=== PATIENT | female | born 1970 | race Two or more races ===

== ENCOUNTER 2020-06-09 05:42 | Emergency (ER) | payer OTHER ==
[2020-06-09] MEDS ORDERED: Sodium Chloride 0.9% 2.5 ML Syringe FLUSH PRN (05:56)
[2020-06-09] MEDS ORDERED: Sodium Chloride 0.9% 10 ML Syringe FLUSH PRN (05:56)
[2020-06-09] MEDS ORDERED: Meclizine 25 MG Tab PO ONE (06:08)
--- NOTE | 2020-06-09 06:13 | EDM.PDOC ---
<Warren Burgess - Last Filed: 06/09/20 06:36> ED HPI GENERAL MEDICAL PROBLEM - General Chief Complaint: General Stated Complaint: DIZZY, HIGH BLOOD PRESSURE, HEART PATIENT Time Seen by Provider: 06/09/20 05:43 - History of Present Illness INITIAL COMMENTS - FREE TEXT/NARRATIVE: 50-year-old female with a significant history including quadruple bypass with subsequent stent placement as well as TIA currently on Xarelto as well as aspirin who is presenting with dizziness headache and hypertension. The patient work-up to go the bathroom's morning and when she laid back down in bed she had severe room spinning associated with nausea. She checked her blood pressure and noted that it was very high she took her clonidine and then took the rest of her morning medicines the clonidine she took between 430 and 5 and the rest of her morning medicine she took between 5 and 530. Patient has no chest pain or shortness of breath and no palpitations but has had significant sensation of room spinning it worsens when she looks around the room and when she moves. She reports posterior neck discomfort but denies any recent neck injury or neck manipulation. - Related Data Allergies Allergy/AdvReac Type Severity Reaction Status Date / Time apixaban [From Eliquis] Allergy Dizziness Verified 06/09/20 05:54 sulfamethoxazole Allergy Hives Verified 06/09/20 05:54 [From Septra] topiramate [From Topamax] Allergy Other Verified 06/09/20 05:54 trimethoprim [From Septra] Allergy Hives Verified 06/09/20 05:54 Home Meds: Home Meds Amiodarone [Cordarone] 200 mg PO DAILY 06/09/20 [History] Aspirin 81 mg PO DAILY 06/09/20 [History] Calcium Citrate/Vitamin D3 [Calcium Citrate - Vit D Caplet] 1 each PO DAILY 06/09/20 [History] Clopidogrel Bisulfate [Clopidogrel] 75 mg PO DAILY 06/09/20 [History] Docusate Sodium [Colace] 100 mg PO DAILY 06/09/20 [History] Erenumab-Aooe [Aimovig Autoinjector] 140 mg SQ ASDIRECTED 06/09/20 [History] Fluticasone/Salmeterol [Advair 250-50] 1 puff INH BID 06/09/20 [History] Icosapent Ethyl [Vascepa] 2 gm PO BID 06/09/20 [History] Irbesartan 300 mg PO DAILY 06/09/20 [History] Meclizine HCl [Wal-Dram 2] 25 mg PO TID PRN #21 tablet 06/09/20 [Rx] Metoprolol Tartrate 25 mg PO BID 06/09/20 [History] Nitroglycerin [Nitrostat] 0.4 mg SL ASDIRECTED PRN 06/09/20 [History] Omeprazole 20 mg PO DAILY 06/09/20 [History] Rivaroxaban [Xarelto] 20 mg PO DAILY 06/09/20 [History] Rosuvastatin Calcium [Crestor] 40 mg PO DAILY 06/09/20 [History] hydroCHLOROthiazide [Hydrochlorothiazide] 12.5 mg PO DAILY 06/09/20 [History] traMADol [Ultram] 50 mg PO DAILY PRN 06/09/20 [History] Past Medical History Cardiovascular History: Reports: Bypass, High Cholesterol, Hypertension, Stents 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: Neurological History: Reports: Headaches, Chronic, TIA, Other (See Below) 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 Psychiatric History: Reports: Anxiety Hematologic History: Reports: Anticoagulation Therapy - Infectious Disease History Infectious Disease History: Reports: Chicken Pox - Past Surgical History Cardiovascular Surgical History: Reports: Other (See Below) Other Cardiovascular Surgeries/Procedures: quad bypass 2019 w stents x 2 Female Surgical History: Reports: Section Neurological Surgical History: Reports: Other (See Below) Other Neurological Surgeries/Procedures: left side brain biopsy 2019 Social & Family History - Family History Family Medical History: No Pertinent Family History - Tobacco Use Tobacco Use Status *Q: Never Tobacco User Second Hand Smoke Exposure: No - Recreational Drug Use Recreational Drug Use: No ED ROS GENERAL - Review of Systems Review Of Systems: See Below Free Text/Narrative/Comment: General: No fever. Skin: No rash. Eyes: No vision problems. ENT: No sore throat. Neck: No neck stiffness. Respiratory: No shortness of breath. Cardiac: No chest pain. Gastrointestinal: No nausea, vomiting or abdominal pain. Urinary: No dysuria. Musculoskeletal: No myalgias/arthralgias. Neurologic: Per HPI ED EXAM, GENERAL - Physical Exam Exam: See Below Free Text/Narrative:: General Appearance: No acute distress, appears comfortable Skin: No rash HEENT: Normocephalic/atraumatic, sclera anicteric, mucous membranes moist Neck: Normal range of motion Chest and Lungs: Bilateral breath sounds, clear to auscultation Cardiovascular: Regular rate and rhythm, no murmur Abdomen: Soft, non-tender Back: Normal Musculoskeletal: No edema or tenderness Neurologic: Leftward beating nystagmus that worsens with leftward gaze, abnormal head impulse test with catch-up saccade, normal test of skew, normal [id number] bilaterally intact strength and sensation bilateral upper and lower extremities Psychiatric: Appropriate, cooperative #1 Interpretation EKG Date: 06/09/20 Time: 05:52 EKG Interpretation Comments: Sinus bradycardia with a rate of 54 QT interval borderline at 490 diffuse T wave flattening no clear acute ischemia Departure - Departure Disposition: Home, Self-Care 01 Clinical Impression: Benign paroxysmal vertigo, right ear, Bradycardia - Discharge Information Prescriptions: Meclizine HCl [Wal-Dram 2] 25 mg PO TID PRN #21 tablet PRN Reason: Dizziness Instructions: Vertigo, Vfep-to-Egos, Bradycardia, Adult, How to Perform the Mino Maneuver Referrals: PCP,Not In Area [Primary Care Provider] - Forms: ED Department Discharge Additional Instructions: You were evaluated today on an emergent basis. I do believe your dizziness and spinning sensation are being caused by a by benign vertigo. Included in your instructions today is the Mino maneuver and I need you to do this approximately 3 times per day and use meclizine as needed for dizziness 3 times per day until symptoms improve. In addition today we found that your heart rate was lower than your normal and in discussion with your market director team it is thought to be secondary to the usage of clonidine and metoprolol. They recommend skipping your evening dose of metoprolol and then resuming tomorrow. They also recommend discontinuing clonidine. If you have any new or worsening symptoms such as chest pain, shortness of breath, passing out, or worsening dizziness please return to the emergency department. Please follow-up with your market director when you return to [place]. They are open 7 days a week and available at any time. The patient is informed of any results of their evaluation and diagnostic workup and all questions are answered. They are given discharge instructions and return precautions. The patient is stable for discharge. The patient states they understand and agree with the plan and that they will return if their symptoms get worse or if they have any new concerns. The following information is given to patients seen in the emergency department who are being discharged to home. This information is to outline your options for follow-up care. We provide all patients seen in our emergency department with a follow-up referral. The need for follow-up, as well as the timing and circumstances, are variable depending upon the specifics of your emergency department visit. If you don't have a primary care physician on staff, we will provide you with a referral. We always advise you to contact your personal physician following an emergency department visit to inform them of the circumstance of the visit and for follow-up with them and/or the need for any referrals to a consulting specialist. The emergency department will also refer you to a specialist when appropriate. This referral assures that you have the opportunity for follow-up care with a specialist. All of these measure are taken in an effort to provide you with optimal care, which includes your follow-up. Under all circumstances we always encourage you to contact your private physician who remains a resource for coordinating your care. When calling for follow-up care, please make the office aware that this follow-up is from your recent emergency room visit. If for any reason you are refused follow-up, please contact the [facility] Emergency Department at and asked to speak to the emergency department charge nurse. Sepsis Event Note (ED) - Evaluation Sepsis Screening Result: No Definite Risk - Assessment/Plan Assessment:: 50-year-old female with significant history as noted above presenting with vertigo that based on her HINTS exam is most consistent with peripheral source. That said given her high blood pressure and her posterior neck pain CT CTA of the head and neck ordered to exclude vertebral artery dissection. Meclizine will be given for symptoms. Patient's EKG is without clear acute ischemia CBC CMP pending as well. Initial troponin pending as well. Patient has no chest pain or shortness of breath. When hopeful that the meclizine will improve her symptoms. We are already seeing her blood pressure trend down likely related to the clonidine and other morning medications that she took. If symptoms vital signs continued to improve and evaluation is reassuring given her hints exam that is consistent with peripheral cause patient will likely be safe for discharge. Labs are thus far unremarkable. Pt signed out to Dr. Mon pending imaging results, reassessment and final disposition. <ElieserBryon - Last Filed: 06/09/20 13:27> ED HPI GENERAL MEDICAL PROBLEM - History of Present Illness INITIAL COMMENTS - FREE TEXT/NARRATIVE: Patient was signed out to me by Dr. Burgess pending imaging and reevaluation at 7 AM I did reevaluate the patient and at the time of my reevaluation the patient stated that her dizziness was still there specially when she turns to the right. She states that it has improved. She denied any nausea, headache, or neck pain at this time. At this time the CTs were still pending. On youth nutritional monitor the patient's heart rate was noted to be 45 and after review of the chart she did come in bradycardic at 54 therefore I did obtain a repeat EKG and reviewed the prior. These appear to be unchanged however she did have sinus bradycardia. After further discussion with the patient she stated that this morning when she got up she did feel dizzy and she took her blood pressure which is found to be 168/110 with a heart rate around 60. She states that she took her blood pressure medications which include metoprolol, hydrochlorothiazide, E irbesartan, amiodarone, and took a dose of 0.1 mg of p.o. clonidine for which her market director told her to take if her blood pressure is elevated. She denies taking any excessive doses. Labs reviewed revealed a normal CBC with differential, normal CMP with a mildly elevated AST at 42. Troponin x2 is negative. Twelve-lead EKG interpreted by myself. Sinus bradycardia at a rate of 47beats per minute. Borderline right axis. TX interval is 185 ms. QRS duration is [address] segments are normal without elevations or depressions. No Q waves present. Hypertrophy not noted. There are T wave inversions in leads V2 and V3. QTC is mildly prolonged at 491 no changes demonstrated from prior EKG dated today. Interpretation: Sinus bradycardia with nonspecific T wave inversions and borderline prolonged QT The radiological images were viewed by myself along with reading the report from the radiologist. CT head without contrast does not reveal any acute intracranial abnormality. 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 Moderate to severe right vertebral origin stenosis. After imaging I did have a discussion with the patient. She stated that she does know about the stenosis and the market director and neurologist that she works with stated that she need to keep her blood pressure between 140 and 150 systolic over 90. She states that other than today her blood pressure has been around that. At this time her dizziness had completely resolved. Given the bradycardia I do believe this is likely secondary to taking metoprolol and clonidine. She does not take clonidine every day so I think this is compounded. However I discussed with her that I would like to contact her market director to evaluate if any further intervention or work-up is needed. I contacted Dr. Reyna in [facility] and he believes that the bradycardia is due to metoprolol and clonidine. He recommended that the patient hold her metoprolol dose tonight and stop the clonidine completely. The patient is here on visit from [place] and the cardiology stated that they are open 7 days a week and she could follow-up as soon as she is back in [place]. I discussed the patient's symptoms her bradycardia and my discussion with her market director and at this time given the patient is asymptomatic currently I do believe the patient is stable for discharge. I discussed with her the rec ommendations from her market director and she expressed understanding and will make an appointment as soon as she is back in [place] in approximately 3 to 4 days. She is to return to the emergency department for any new or worsening symptoms. In addition I did discuss with her the Mino maneuver for her benign vertigo and provided her with a prescription for meclizine to be used as needed for dizziness. She was amenable discharge and had no further questions DISPOSITION: The patient was discharged home in stable condition. The patient will follow up with cardiology this next week CONDITION: Fair PROCEDURES: None FINAL IMPRESSION(S)/DIAGNOSES: 1. Acute benign positional vertigo 2. Acute bradycardia likely secondary to medication side effect Bryon Mon M.D.a Course - Vital Signs Last Recorded V/S: Last Vital Signs Temp 36.2 C 06/09/20 11:14 Pulse 46 L 06/09/20 11:14 Resp 15 06/09/20 11:14 BP 139/63 06/09/20 11:14 Pulse Ox 97 06/09/20 10:43 - Orders/Labs/Meds Orders: Active Orders 24 hr Category Date Time Status Saline Lock Insert [OM.PC] Stat Oth 06/09/20 05:56 Ordered Labs: Laboratory Tests 06/09/20 06/09/20 06/09/20 Range/Units 05:58 05:58 09:50 WBC 6.69 (4.0-11.0) K/uL RBC 4.94 (4.30-5.90) M/uL Hgb 12.4 (12.0-16.0) g/dL Hct 40.0 (36.0-46.0) % MCV 81.0 (80.0-98.0) fL MCH 25.1 L (27.0-32.0) pg MCHC 31.0 (31.0-37.0) g/dL RDW Std Deviation 44.3 (28.0-62.0) fl RDW Coeff of Caterina 15 (11.0-15.0) % Plt Count 275 (150-400) K/uL MPV 10.90 (7.40-12.00) fL Neut % (Auto) 46.5 L (48.0-80.0) % Lymph % (Auto) 43.6 H (16.0-40.0) % [place] % (Auto) 8.1 (0.0-15.0) % Eos % (Auto) 1.5 (0.0-7.0) % Baso % (Auto) 0.3 (0.0-1.5) % Neut # (Auto) 3.1 (1.4-5.7) K/uL Lymph # (Auto) 2.9 H (0.6-2.4) K/uL [place] # (Auto) 0.5 (0.0-0.8) K/uL Eos # (Auto) 0.1 (0.0-0.7) K/uL Baso # (Auto) 0.0 (0.0-0.1) K/uL Nucleated RBC % 0.0 /100WBC Nucleated RBCs # 0 K/uL Sodium 139 (136-145) mmol/L Potassium 3.9 (3.5-5.1) mmol/L Chloride 103 (98-107) mmol/L Carbon Dioxide 27.3 (21.0-32.0) mmol/L BUN 15 (7.0-18.0) mg/dL Creatinine 0.9 (0.6-1.0) mg/dL Est Cr Clr Drug Dosing 55.18 mL/min Estimated GFR (MDRD) > 60.0 ml/min Glucose 104 (74-106) mg/dL Calcium 9.3 (8.5-10.1) mg/dL Total Bilirubin 0.3 (0.2-1.0) mg/dL AST 42 H (15-37) IU/L ALT 59 (14-63) IU/L Alkaline Phosphatase 65 (46-116) U/L Troponin I < 0.050 < 0.050 (0.000-0.056) ng/mL Total Protein 7.5 (6.4-8.2) g/dL Albumin 3.7 (3.4-5.0) g/dL Globulin 3.8 (2.6-4.0) g/dL Albumin/Globulin Ratio 1.0 (0.9-1.6) Meds: Medications Discontinued Medications Generic Name Dose Route Start Last Admin Trade Name Freq PRN Reason Stop Dose Admin Iopamidol 100 ml 06/09/20 08:20 06/09/20 08:20 Isovue Multipack-370 (76%) IVPUSH 06/09/20 08:21 100 ml ONETIME ONE Administration Meclizine HCl 25 mg 06/09/20 06:08 06/09/20 06:20 Antivert PO 06/09/20 06:09 25 mg ONETIME ONE Administration Ondansetron HCl 4 mg 06/09/20 06:15 06/09/20 06:17 Zofran IVPUSH 06/09/20 06:16 4 mg ONETIME ONE Administration Ondansetron HCl Confirm 06/09/20 06:15 06/09/20 06:20 Zofran Administered 06/09/20 06:16 Not Given Dose 4 mg .ROUTE .STK-MED ONE Sodium Chloride 10 ml 06/09/20 05:56 06/09/20 06:19 Saline Flush FLUSH 10 ml ASDIRECTED PRN Administration Keep Vein Open Sodium Chloride 2.5 ml 06/09/20 05:56 06/09/20 06:19 Saline Flush FLUSH 2.5 ml ASDIRECTED PRN Administration Keep Vein Open Departure - Departure Time of Disposition: 11:05 Condition: Fair - Discharge Information *PRESCRIPTION DRUG MONITORING PROGRAM REVIEWED*: No *COPY OF PRESCRIPTION DRUG MONITORING REPORT IN PATIENT ONI: No Sepsis Event Note (ED) - Focused Exam Vital Signs: Vital Signs Temp Pulse Resp BP Pulse Ox 06/09/20 11:14 36.2 C 46 L 15 139/63 06/09/20 10:43 46 L 15 145/69 H 97 06/09/20 10:05 48 L 15 135/74 99 06/09/20 09:05 46 L 16 129/72 97 06/09/20 08:35 46 L 15 123/67 95 06/09/20 08:05 47 L 15 127/68 96 06/09/20 07:21 45 L 15 118/63 96 06/09/20 06:58 46 L 16 139/70 96 06/09/20 06:21 51 L 18 176/91 H 97 06/09/20 05:49 35.7 C L 59 L 18 199/92 H 98
[2020-06-09] MEDS ORDERED: Ondansetron 4 MG/2 ML SDV ONE (06:15)
[2020-06-09] MEDS ORDERED: Ondansetron 4 MG/2 ML SDV IVPUSH ONE (06:15)
[2020-06-09 06:30] LABS: BLOOD UREA NITROGEN,BUN 15 mg/dL (7.0-18.0); CARBON DIOXIDE,CO2 27.3 mmol/L (21.0-32.0); CHLORIDE,CL 103 mmol/L (98-107); GLUCOSE RANDOM 104 mg/dL (74-106); POTASSIUM,K 3.9 mmol/L (3.5-5.1); SODIUM,NA 139 mmol/L (136-145)
[2020-06-09] MEDS ORDERED: Iopamidol 755 MG/ML 500 ML Multipack Bottle IVPUSH ONE (08:20)
--- NOTE | 2020-06-09 08:35 | CT ---
INDICATION: Vertigo and neck pain. TECHNIQUE: CT of the head without contrast. Coronal and sagittal reformats are included. COMPARISON: None. FINDINGS: No CT evidence of acute cortical infarct. No loss of ramos white matter differentiation. No hyperdense vessels to suggest intracranial thrombus. No acute intracranial hemorrhage. No mass effect or midline shift. No hydrocephalus or extra-axial collections. White matter is within normal limits for age. No acute osseous abnormalities. Mastoid air cells and paranasal sinuses are clear. Normal soft tissues. IMPRESSION: IMPRESSION:1. No CT evidence of acute cortical infarct. No acute intracranial hemorrhage. No other acute intracranial findings. Please note that all CT scans at this facility use dose modulation, iterative reconstruction, and/or weight-based dosing when appropriate to reduce radiation dose to as low as reasonably achievable. Dictated by Chris Palma MD @ Jun 09 2020 8:32AM Signed by Dr. Chris Palma @ Jun 09 2020 8:34AM
--- NOTE | 2020-06-09 08:43 | CT ---
INDICATION: Vertigo, neck pain. TECHNIQUE: After standard noncontrast head CT, high resolution axial CT images acquired through the head and neck following rapid intravenous administration of iodinated contrast. Multiplanar MIPS of cranial and cervical vasculature performed. FINDINGS: Noncontrast head CT: There is no intracranial hemorrhage or fluid collection. The wells-white matter differentiation is maintained. The ventricles are of normal morphology. The basal cisterns are clear. CTA head: There is a severe stenosis of the M1 segment of the right MCA, almost in a moyamoya type pattern. There is a milder stenosis of the left MCA. There is no large vessel occlusion. No aneurysm or vascular malformation is identified. Overall, the cerebral vasculature is of relatively small caliber. CTA neck: Soft atherosclerotic plaque is noted in the proximal internal carotid arteries bilaterally with a mild stenosis on the left, less than 50 percent by NASCET criteria. There is no significant stenosis on the right. There is a moderate to severe stenosis at the right vertebral artery origin. There is no significant left vertebral artery stenosis or dissection. IMPRESSION: 1. 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 2. Bilateral carotid atherosclerotic disease with a mild stenosis of the proximal left ICA, less than 50 percent by NASCET criteria. 3. Moderate to severe right vertebral artery origin stenosis. Des Drake MD Neurointerventional Radiologist [facility] Please note that all CT scans at this facility use dose modulation, iterative reconstruction, and/or weight-based dosing when appropriate to reduce radiation dose to as low as reasonably achievable. Dictated by Des Drake MD @ Jun 09 2020 9:22AM Signed by Dr. Des Drake @ Jun 09 2020 9:25AM
== END 2020-06-09 11:23 | disposition home or self-care (01) ==
LOC: MW.ED 05:42
DX: H81.11 Benign paroxysmal vertigo, right ear (principal); R00.1 Bradycardia, unspecified; E78.00 Pure hypercholesterolemia, unspecified; I10 Essential (primary) hypertension; Z95.5 Presence of coronary angioplasty implant and graft; Z86.73 Personal history of transient ischemic attack (TIA), and cerebral infarction without residual deficits; Z79.01 Long term (current) use of anticoagulants; Z88.2 Allergy status to sulfonamides; Z88.1 Allergy status to other antibiotic agents; Z79.82 Long term (current) use of aspirin; Z79.899 Other long term (current) drug therapy; Z79.02 Long term (current) use of antithrombotics/antiplatelets; Z95.1 Presence of aortocoronary bypass graft
CPT/HCPCS: 36415; 70450; 70496; 70498; 80053; 84484; 85025; 93005; 96374; 99284; A9270; J2405; Q9967